=== PATIENT | female | born 1980 | race Caucasian/White ===

== ENCOUNTER 2023-04-26 11:53 | Emergency (ER) | payer MEDICAID ==
[~2023-04-26] VITALS: Ht 162.6 cm; Wt 68.0 kg
[2023-04-26 12:04] VITALS: BP 125/80; PULSE 68; RESP 18; TEMP 97.9; O2SAT 100
[2023-04-26] MEDS ORDERED: FAMOTIDINE 20 MG TAB PO ONE (12:20)
[2023-04-26] MEDS ORDERED: ALUMINUM HYD/MAG/SIMETHICONE 30 ML UDC PO ONE (12:20)
[2023-04-26 12:42] VITALS: O2SAT 100
[2023-04-26 13:56] LABS: BASOPHILS % (AUTO) 0.2 % (0.0-2.0); EOSINOPHILS # (AUTO) 0.1 K/uL (0-0.4); EOSINOPHILS % (AUTO) 1.7 % (0.0-4.0); HEMATOCRIT 37.1 % (36-48); HEMOGLOBIN 12.6 g/dL (12.0-16.0); LYMPHOCYTES # (AUTO) 1.6 K/uL (2.5-16.5); LYMPHOCYTES % (AUTO) 21.2 % (20.5-51.1); MEAN CORPUSCULAR HEMOGLOBIN 29 pg (27-31); MEAN CORPUSCULAR HGB CONC 34 g/dL (33-37); MEAN CORPUSCULAR VOLUME 84.5 fL (80-94); MONOCYTES # (AUTO) 0.6 K/uL (0.8-1.0); MONOCYTES % (AUTO) 7.6 % (1.7-9.3); NEUTROPHILS # (AUTO) 5.1 K/uL (1.8-7.7); NEUTROPHILS % (AUTO) 69.3 % (42.2-75.2); PLATELET COUNT (AUTO) 283 K/uL (140-450); RED CELL DISTRIBUTION WIDTH 12.6 % (11.6-13.7); WHITE BLOOD COUNT (AUTO) 7.3 K/uL (4.8-10.8)
[2023-04-26 14:15] VITALS: BP 121/78; PULSE 68; RESP 18; TEMP 97.9
[2023-04-26 14:44] VITALS: O2SAT 100
[2023-04-26] MEDS ORDERED: OMEP40EC23 PO (15:05)
[2023-04-26] MEDS ORDERED: SUCR1TAB35 PO (15:05)
[2023-04-26 15:16] LABS: ALANINE AMINOTRANSFERASE 44 U/L (12-78); ALBUMIN 3.7 g/dL (3.4-5.0); ALKALINE PHOSPHATASE 74 U/L (50-136); ASPARTATE AMINOTRANSFERASE 38 U/L (15-37); CALCIUM 8.7 mg/dL (8.5-10.1); CARBON DIOXIDE 29.5 mmol/L (21-32); CHLORIDE 97 mmol/L (98-107); CREATININE 0.8 mg/dL (0.6-1.3); GFR ARICAN-AMERICAN 102 mL/min (>90); GFR NON ARICAN-AMERICAN 84 mL/min (>90); GLUCOSE 112 mg/dL (74-106); LIPASE 173 U/L (73-393); POTASSIUM 3.5 mmol/L (3.5-5.1); SODIUM SERUM 133 mmol/L (136-145); TOTAL BILIRUBIN 0.7 mg/dL (0.0-1.0); TOTAL PROTEIN, SERUM 7.9 g/dL (6.4-8.2); UREA NITROGEN, BLOOD 20 mg/dL (7-18)
== END 2023-04-26 15:20 | disposition home or self-care (01) ==
LOC: MED 11:53
DX: R10.13 Epigastric pain (principal); Z79.899 Other long term (current) drug therapy
CPT/HCPCS: 36415; 71045; 80053; 81002; 81025; 83690; 84484; 85025; 93005; 99285